=== PATIENT | female | born 1970 | race Caucasian/White ===

== ENCOUNTER 2018-01-15 10:19 | Observation (INO) ==
--- NOTE | 2018-01-15 10:52 | ED ---
HPI General Chief Complaint: Chest Pain Stated Complaint: Cardiac Time Seen by Provider: 01/15/18 10:40 Source: patient Mode of arrival: EMS Limitations: no limitations History of Present Illness HPI narrative: 37 years old female complains of chest pain. Patient states that the pain started an hour prior to arrival. Patient states that the pain is substernal chest pressure with radiation to the neck. Patient states that he has shortness of breath, nausea with the chest pain. Patient states that patient was pale. EMS was called. Patient was given nitroglycerin sublingually x2 with resolution of the chest pain after 5 minutes. Patient denies any chest pain now. Patient has history of irregular heartbeat and was seen by her hearing therapy teacher and referred to human resources advisor study. Patient has history of hypertension. Patient denies history of diabetes or hyperlipidemia. Patient stopped smoking 60 days ago. Patient has family history of heart disease. Patient denies any chest pain now. MD complaint: chest pain Complete Quality Measures for STEMI Alert Patients STEMI Alert: No Onset (ago): minute(s) Duration: constant Onset: during rest Pain location: substernal Severity: moderate Severity scale (1-10): 5 Quality: aching and heaviness Pain radiation: neck Relieving factors: nitroglycerin Exacerbating factors: nothing Associated symptoms: nausea Treatments prior to arrival chest pain: nitroglycerin Related Data Home Medications Medication Instructions Recorded Confirmed diltiazem HCl [DILT-XR] 120 mg PO DAILY 01/15/18 01/15/18 triamterene-hydrochlorothiazid 120 mg PO DAILY 01/15/18 01/15/18 Allergies Allergy/AdvReac Type Severity Reaction Status Date / Time No Known Allergies Allergy Verified 01/15/18 15:28 Review of Systems Except as stated in HPI: all other systems reviewed are negative [facility] Medical History Medical History Arrhythmia (Acute) Cervical vertebral fusion (Acute) Degenerative cervical disc (Acute) Hypertension (Acute) Meniere disease (Acute) Tubal ligation status (Acute) Surgical History Surgical History H/O arthroscopic knee surgery (Acute) Social History Social History Substance History: No History of Abuse Second Hand Smoke Exposure: No Smoking Status: Former smoker Tobacco Type: Cigarettes How Often Do You Have a Drink Containing Alcohol: Monthly or less Recent Travel in [facility] within the Last 8 Weeks: No Recent Out of Country Travel within the Last 8 Weeks: No Immunization History Tetanus Immunization: Unsure Hx Influenza Vaccine This Season: No Exam Narrative Exam Narrative: GENERAL: Well-nourished, well-developed patient. SKIN: Focused skin assessment warm/dry. HEAD: Normocephalic. EYES: No scleral icterus. No injection or drainage. NECK: Supple, trachea midline. No JVD or lymphadenopathy. CARDIOVASCULAR: Regular rate and rhythm without murmurs, gallops, or rubs. RESPIRATORY: Breath sounds equal bilaterally. No accessory muscle use. GASTROINTESTINAL: Abdomen soft, non-tender, nondistended. MUSCULOSKELETAL: No cyanosis, or edema. BACK: Nontender without obvious deformity. No CVA tenderness. Neurologic exam normal. Course Initial Documented Vital Signs Temperature 98.1 F 01/15/18 10:25 Pulse Rate 69 01/15/18 10:25 Respiratory Rate 18 01/15/18 10:25 Blood Pressure 115/75 01/15/18 10:25 Pulse Oximetry 99 01/15/18 10:25 Last Documented Vital Signs Temperature 98.1 F 01/16/18 12:00 Pulse Rate 64 01/16/18 12:00 Respiratory Rate 16 01/16/18 12:00 Blood Pressure 108/64 01/16/18 12:00 Pulse Oximetry 97 01/16/18 12:00 Medical Decision Making MDM Narrative Medical decision making narrative: 47 years old female with chest pain. History of irregular heartbeat. patient will be admitted to chest pain center. Differential Diagnosis Differential Diagnosis: Differential diagnosis including arrhythmia, angina, NH , PE, pneumothorax. Lab Data Result diagrams: 01/15/18 10:30 01/15/18 10:30 Lab Results 01/15/18 01/15/18 01/15/18 Range/Units 10:30 10:30 10:30 WBC 7.4 (4.0-11.0) th/mm3 RBC 4.26 (4.00-5.30) mil/mm3 Hgb 13.6 (11.6-15.3) gm/dL Hct 39.8 (35.0-46.0) % MCV 93.3 (80.0-100.0) fL MCH 31.8 (27.0-34.0) pg MCHC 34.1 (32.0-36.0) % RDW 14.0 (11.6-17.2) % Plt Count 264 (150-450) th/mm3 MPV 8.9 (7.0-11.0) fL Neut % (Auto) 60.0 (16.0-70.0) % Lymph % (Auto) 28.8 (9.0-44.0) % Towns % (Auto) 8.0 (0.0-8.0) % Eos % (Auto) 2.4 (0.0-4.0) % Baso % (Auto) 0.8 (0.0-2.0) % Neut # (Auto) 4.4 (1.8-7.7) th/mm3 Lymph # (Auto) 2.1 (1.0-4.8) th/mm3 [place] # (Auto) 0.6 (0.0-0.9) th/mm3 Eos # (Auto) 0.2 (0.0-0.4) th/mm3 Baso # (Auto) 0.1 (0.0-0.2) th/mm3 WBC Differential . Differential Comment Auto diff final PT 10.1 (9.8-11.6) sec INR 1.0 Ratio APTT 23.5 L (24.3-30.1) sec Sodium 138 (136-145) meq/L Potassium 3.6 (3.5-5.1) meq/L Chloride 101 (98-107) meq/L Carbon Dioxide 28.4 (21.0-32.0) meq/L Anion Gap 9 (5-15) meq/L BUN 9 (7-18) mg/dL Creatinine 0.98 (0.50-1.00) mg/dL Estimated GFR 61 L (>89) mL/min Random Glucose 98 (74-106) mg/dL Calcium 8.4 L (8.5-10.1) mg/dL Magnesium 1.9 (1.5-2.5) mg/dL Total Bilirubin 0.3 (0.2-1.0) mg/dL AST 36 (15-37) U/L ALT 31 (10-53) U/L Alkaline Phosphatase 47 (45-117) U/L Total Creatine Kinase 254 H (26-192) U/L CK-MB (CK-2) 3.3 (0.5-3.6) ng/mL CK-MB (CK-2) % 1.3 (0.0-4.0) % Troponin I Less than 0.02 L (0.02-0.05) ng/mL Total Protein 6.9 (6.4-8.2) g/dL Albumin 3.3 L (3.4-5.0) g/dL 01/15/18 01/15/18 Range/Units 16:30 20:50 WBC (4.0-11.0) th/mm3 RBC (4.00-5.30) mil/mm3 Hgb (11.6-15.3) gm/dL Hct (35.0-46.0) % MCV (80.0-100.0) fL MCH (27.0-34.0) pg MCHC (32.0-36.0) % RDW (11.6-17.2) % Plt Count (150-450) th/mm3 MPV (7.0-11.0) fL Neut % (Auto) (16.0-70.0) % Lymph % (Auto) (9.0-44.0) % Town[place] % (Auto) (0.0-8.0) % Eos % (Auto) (0.0-4.0) % Baso % (Auto) (0.0-2.0) % Neut # (Auto) (1.8-7.7) th/mm3 Lymph # (Auto) (1.0-4.8) th/mm3 [place] # (Auto) (0.0-0.9) th/mm3 Eos # (Auto) (0.0-0.4) th/mm3 Baso # (Auto) (0.0-0.2) th/mm3 WBC Differential Differential Comment PT (9.8-11.6) sec INR Ratio APTT (24.3-30.1) sec Sodium (136-145) meq/L Potassium (3.5-5.1) meq/L Chloride (98-107) meq/L Carbon Dioxide (21.0-32.0) meq/L Anion Gap (5-15) meq/L BUN (7-18) mg/dL Creatinine (0.50-1.00) mg/dL Estimated GFR (>89) mL/min Random Glucose (74-106) mg/dL Calcium (8.5-10.1) mg/dL Magnesium (1.5-2.5) mg/dL Total Bilirubin (0.2-1.0) mg/dL AST (15-37) U/L ALT (10-53) U/L Alkaline Phosphatase (45-117) U/L Total Creatine Kinase 206 H 181 (26-192) U/L CK-MB (CK-2) 2.9 (0.5-3.6) ng/mL CK-MB (CK-2) % 1.4 (0.0-4.0) % Troponin I Less than 0.02 L Less than 0.02 L (0.02-0.05) ng/mL Total Protein (6.4-8.2) g/dL Albumin (3.4-5.0) g/dL Imaging Data Radiologist's impression: ITS Impressions Chest X-Ray 01/15/18 10:40 CONCLUSION: No acute cardiopulmonary disease Myocardial Perfusion Scan Nuc Med 01/16/18 07:29 CONCLUSION: 1. No reversible perfusion defects ischemia. 2. Normal ejection fraction. Discharge Plan Discharge Disposition Patient Disposition: 01 Discharge Home Discharge Condition Condition: Stable Discharge Order Discharge Orders: Discharge Order (Routine); Ordered 01/16/18 Ordered By: Kem Dominguez Discharge Details Anticipated Discharge Date: 01/16/18 Discharge Problem: Chest pain Physicians Team ED Provider: Josh Lockhart Primary Care Provider: Primary Care Merly Echols Attending Provider: Edil Oden Status ED Status: Left Department Discharge Information Discharge Date/Time: 01/15/18 15:22
[2018-01-15 11:18] LABS: Baso # (Auto) 0.1 th/mm3 (0.0-0.2); Baso % (Auto) 0.8 % (0.0-2.0); Eos # (Auto) 0.2 th/mm3 (0.0-0.4); Eos % (Auto) 2.4 % (0.0-4.0); Hematocrit 39.8 % (35.0-46.0); Hemoglobin 13.6 gm/dL (11.6-15.3); Lymph # (Auto) 2.1 th/mm3 (1.0-4.8); Lymph % (Auto) 28.8 % (9.0-44.0); Mean Corpuscular HGB Conc 34.1 % (32.0-36.0); Mean Corpuscular Hemoglobin 31.8 pg (27.0-34.0); Mean Corpuscular Volume 93.3 fL (80.0-100.0); Mean Platelet Volume 8.9 fL (7.0-11.0); Mono # (Auto) 0.6 th/mm3 (0.0-0.9); Neut # (Auto) 4.4 th/mm3 (1.8-7.7); Platelet Count 264 th/mm3 (150-450); Red Blood Count 4.26 mil/mm3 (4.00-5.30); White Blood Count 7.4 th/mm3 (4.0-11.0)
--- NOTE | 2018-01-15 11:21 | XR ---
EXAM DATE: 01/15/2018 11:15 AM EDT AGE/SEX: 47 years / Female INDICATIONS: Chest Pain, Heart Palpitations CLINICAL DATA: This is the patient's initial encounter. Patient reports that signs and symptoms have been present for 1 day and indicates a pain score of 5/10. MEDICAL/SURGICAL HISTORY: None. None. COMPARISON: No prior exams available for comparison. FINDINGS: A single AP view of the chest demonstrates the lungs to be symmetrically aerated without evidence of mass, infiltrate or effusion. The cardiomediastinal contours are unremarkable. Osseous structures a re intact. CONCLUSION: No acute cardiopulmonary disease Electronically signed by: Félix De La Torre MD 01/15/2018 11:19 AM EDT
[2018-01-15 11:28] LABS: Activated Partial Thrombo Time 23.5 sec (24.3-30.1); Prothrombin Time 10.1 sec (9.8-11.6)
[2018-01-15 11:54] LABS: Alanine Aminotransferase 31 U/L (10-53); Albumin 3.3 g/dL (3.4-5.0); Alkaline Phosphatase 47 U/L (45-117); Anion Gap 9 meq/L (5-15); Aspartate Aminotransferase 36 U/L (15-37); Blood Urea Nitrogen 9 mg/dL (7-18); Calcium 8.4 mg/dL (8.5-10.1); Carbon Dioxide 28.4 meq/L (21.0-32.0); Chloride 101 meq/L (98-107); Creatine Kinase 254 U/L (26-192); Glomerular Filtration Rate 61 mL/min (>89); Glucose,Random 98 mg/dL (74-106); Magnesium 1.9 mg/dL (1.5-2.5); Potassium 3.6 meq/L (3.5-5.1); Sodium 138 meq/L (136-145); Total Protein 6.9 g/dL (6.4-8.2)
[2018-01-15 12:07] LABS: CKMB Percent 1.3 % (0.0-4.0); Creatine Kinase MB 3.3 ng/mL (0.5-3.6)
[2018-01-15] MEDS ORDERED: ALPRAZolam 0.25 MG Tablet PO PRN (15:16)
[2018-01-15] MEDS ORDERED: Acetaminophen 500 MG Tablet PO PRN (15:18)
--- NOTE | 2018-01-15 15:37 | ECG ---
Date Performed: 01/15/2018 Time Performed: 10:30:51 PTAGE: 47 years EKG: Sinus rhythm NORMAL ECG NO PREVIOUS TRACING DOCTOR: Joseph Yadav Interpretating Date/Time 01/15/2018 15:34:45
[2018-01-15] MEDS: dilTIAZem CD 120 MG Capsule PO SCH (16:01)
--- NOTE | 2018-01-15 16:03 | P.HPCA ---
History of Present Illness Primary Care Physician: No Primary Care Physician Chief Complaint: Chest pain and palpitations History of Present Illness: This is a 47-year-old female that presents to ED via EMS with complaint of palpitations and chest pain. Patient states she has been having issues with both for some time. She was seen by patient safety coordinator and had a Holter monitor within the last month. States she wore for couple weeks. She states that she was told that a fast arrhythmia was observed and she was referred to a line o scribe operator. The line o scribe operator has scheduled her for an EP study and of this month. This will occur in [facility] where she resides. Her and her [place] are here for the races. She states she has been having palpitations and chest discomfort a few times a day for last several weeks. Usually lasts a few minutes when it occurs. It is random. This morning the same occurred but it lasted longer. Lasted about 45 minutes. States she felt as if her heart was beating rapidly and she developed the same type of pressure in her throat that she normally does but again it lasted longer. The sensation of heart beating rapidly lasted about 20 minutes but the discomfort lasted 45 minutes. She also felt like she could have passed out but did not have a syncopal episode. She was placed on diltiazem couple weeks ago but stopped taking it 4 days ago thinking it was causing itching on her feet. The itching is still present at discontinuing the medication 4 days ago. States she has never had a heart catheterization and if she had a stress test that was years ago. Currently is asymptomatic. Denies history of hyperlipidemia diabetes and CAD. Has history of Mnire's disease and takes Dyazide for that. States that her father at the age of 66 old myocardial infarction but states that he had a bypass in his late 20s. Patient states she quit smoking about 2 months ago prior to that she smoked between 1/2-1 pack of cigarettes daily for 30 years. Patient has had tubal ligation and cervical fusion. - Diagnosis (1) Chest pain (2) Palpitations (3) Hypertension (4) Mnire's disease Inpatient Certification: I certify that the inpatient services were ordered in accordance with Medicare regulations governing the order. This includes certification that hospital inpatient services are reasonable and necessary and in the case of services not specified as inpatient-only under 42 CFR 419.22(n), that they are appropriately provided as inpatient services in accordance to with the 2-midnight benchmark under 43 CFR 412.3(e) Review of Systems General: Patient denies fevers, chills, and recent travel. HEENT: Patient denies headache, sore throat, difficulty swallowing. Cardiovascular: Has the chest discomfort as mentioned above. Denies sensation of heart beating rapidly or irregularly. No syncope. Denies diaphoresis. Respiratory: Denies shortness of breath or inspirational chest discomfort. Denies coughing wheezing or hemoptysis. GI: Patient denies nausea, vomiting, diarrhea, abdominal pain, bloody stools. Musculoskeletal: Patient denies joint pain or edema. Denies calf pain or edema. Neurovascular: Patient denies numbness, tingling, weakness in extremities. Denies headache. Endocrine: Denies polyuria and polydipsia. Hematologic: Denies easy bruising. Skin: Denies rash or itching. PMFSH - History History Provided By: Patient - Medical History Medical History: Medical History (Last Reviewed 01/15/18 @ 10:50 by Josh Lockhart MD) Arrhythmia Cervical vertebral fusion Degenerative cervical disc Hypertension Meniere disease Tubal ligation status - Surgical History Surgical History: Surgical History (Last Reviewed 01/15/18 @ 10:50 by Josh Lockhart MD) H/O arthroscopic knee surgery - Tobacco History Second Hand Smoke Exposure: No Tobacco Use In Past 30 Days: No Smoking Status: Former smoker Tobacco Type: Cigarettes - Alcohol History How Often Do You Have a Drink Containing Alcohol: Monthly or less - Substance Use History Substance History: No History of Abuse - Travel History Recent Travel in the [place] Within the Last 8 Weeks: No Recent Travel Out of the Country Within the Last 8 Weeks: No - Immunization History Tetanus Immunization: Unsure Hx Influenza Vaccine This Season: No Medications and Allergies Active Medications: Active Medications Acetaminophen (Tylenol) 500 mg PO Q6H PRN PRN Reason: pain scale 1-5 Hydrocodone Bitart/Acetaminophen ([place] 7.5/325) 1 tab PO Q6H PRN PRN Reason: pain scale 6-10 Albuterol (Duoneb Neb (Prn)) 1 ampul NEB Q4HR NEB PRN PRN Reason: SHORTNESS OF BREATH/WHEEZING Alprazolam (Xanax) 0.25 mg PO Q8H PRN PRN Reason: ANXIETY Aspirin (Aspirin) 325 mg PO DAILY ERIC Clonidine HCl (Catapres) 0.1 mg PO Q6H PRN PRN Reason: SBP >165 OR DBP > 110 Diltiazem HCl (Cardizem Cd 24hr) 120 mg PO DAILY [facility] Ondansetron HCl (Zofran Inj) 4 mg IV.PUSH Q6H PRN PRN Reason: NAUSEA Pantoprazole Sodium (Protonix) 40 mg PO DAILY [facility] Sodium Chloride (Ns Flush) 2 ml IV.FLUSH UNSCH PRN PRN Reason: FLUSH AFTER USING IV ACCESS Sodium Chloride (Ns Flush) 2 ml IV.FLUSH BID ERIC Sodium Chloride (Ns Flush) 2 ml IV.FLUSH PRN PRN PRN Reason: FLUSH AFTER USING IV ACCESS Triamterene/HCTZ (Dyazide 37.5/25 Mg) 1 cap PO DAILY [facility] Allergies Allergy/AdvReac Type Severity Reaction Status Date / Time No Known Allergies Allergy Verified 01/15/18 15:28 Home Medications Medication Instructions Recorded Confirmed Type diltiazem HCl [DILT-XR] 120 mg PO DAILY 01/15/18 01/15/18 History triamterene-hydrochlorothiazid 120 mg PO DAILY 01/15/18 01/15/18 History Exam Vital signs: Vital Signs 01/15/18 10:25 01/15/18 10:34 01/15/18 11:32 Temperature 98.1 F Pulse Rate 69 72 64 Respiratory Rate 18 12 14 Blood Pressure 115/75 128/73 128/73 Pulse Oximetry 99 99 97 01/15/18 15:01 01/15/18 15:50 01/15/18 15:52 Temperature Pulse Rate 65 62 Respiratory Rate 18 Blood Pressure 116/58 L 117/70 Pulse Oximetry 98 98 98 Intake & Output 01/14/18 01/15/18 01/15/18 18:59 06:59 18:59 Weight 72.575 kg Narrative: GENERAL: This is a well-nourished, well-developed patient, in no apparent distress. Patient speaks in clear complete sentences. Patient is pleasant. HEENT: Head is atraumatic and normocephalic. Neck is supple without lymphadenopathy and trachea is midline. No JVD or carotid bruits. CARDIOVASCULAR: Regular rate and rhythm without murmurs, gallops, or rubs. RESPIRATORY: Clear to auscultation. Breath sounds equal bilaterally. No wheezes , rales, or rhonchi. Chest wall is nontender. No use of accessory muscles. GASTROINTESTINAL: Abdomen is nontender, nondistended. Abdomen soft. No obvious pulsatile mass or bruit. No CVA tenderness. Strong femoral pulses bilaterally. Normal bowel sounds in all quadrants. MUSCULOSKELETAL: Patient is moving upper and lower extremities freely. No calf tenderness or edema, no Homans sign. Strong pulses in upper and lower extremities. NEUROLOGICAL: Patient is alert and oriented. Cranial nerves 2-12 are grossly intact. No focal deficits and speech is clear. SKIN: No rash and turgor is normal. Results 01/15/18 10:30 01/15/18 10:30 Cardiac Enzymes 01/15/18 Range/Units 10:30 AST 36 (15-37) U/L CK-MB (CK-2) 3.3 (0.5-3.6) ng/mL Troponin I Less than 0.02 L (0.02-0.05) ng/mL Coagulation 01/15/18 Range/Units 10:30 PT 10.1 (9.8-11.6) sec APTT 23.5 L (24.3-30.1) sec CBC 01/15/18 Range/Units 10:30 WBC 7.4 (4.0-11.0) th/mm3 RBC 4.26 (4.00-5.30) mil/mm3 Hgb 13.6 (11.6-15.3) gm/dL Hct 39.8 (35.0-46.0) % Plt Count 264 (150-450) th/mm3 Neut # (Auto) 4.4 (1.8-7.7) th/mm3 Lymph # (Auto) 2.1 (1.0-4.8) th/mm3 [place] # (Auto) 0.6 (0.0-0.9) th/mm3 Eos # (Auto) 0.2 (0.0-0.4) th/mm3 Baso # (Auto) 0.1 (0.0-0.2) th/mm3 Comprehensive Metabolic Panel 01/15/18 Range/Units 10:30 Sodium 138 (136-145) meq/L Potassium 3.6 (3.5-5.1) meq/L Chloride 101 (98-107) meq/L Carbon Dioxide 28.4 (21.0-32.0) meq/L BUN 9 (7-18) mg/dL Creatinine 0.98 (0.50-1.00) mg/dL Calcium 8.4 L (8.5-10.1) mg/dL AST 36 (15-37) U/L ALT 31 (10-53) U/L Alkaline Phosphatase 47 (45-117) U/L Total Protein 6.9 (6.4-8.2) g/dL Albumin 3.3 L (3.4-5.0) g/dL Intake and Output 01/15/18 01/15/18 01/15/18 06:59 14:59 22:59 Other: Weight 72.575 kg Patient Weight 01/16/18 06:59 Weight 72.575 kg EKG interpretations - EKG EKG shows: sinus rhythm (Initial EKG is sinus rhythm without significant ST segment depressions or elevations.) Caprini VTE Risk Assessment Caprini VTE Risk Assessment: No/Low Risk (score <= 1) Caprini Risk Assessment Model: Point Value = 1 Point Value = 2 Point Value = 3 Point Value = 5 Age 41-60 Minor surgery BMI > 25 kg/m2 Swollen legs Varicose veins or History of unexplained or recurrent spontaneous Oral contraceptives or hormone replacement Sepsis (< 1 month) Serious lung disease, including pneumonia (< 1 month) Abnormal pulmonary function Acute myocardial infarction Congestive heart failure (< 1 month) History of inflammatory bowel disease Medical patient at bed rest Age 61-74 Arthroscopic surgery Major open surgery (> 45 min) Laparoscopic surgery (> 45 min) Malignancy Confined to bed (> 72 hours) Immobilizing plaster cast Central venous access Age >= 75 History of VTE Family history of VTE Factor V Leiden Prothrombin [id number] Lupus anticoagulant Anticardiolipin antibodies Elevated serum homocysteine Heparin-induced thrombocytopenia Other congenital or acquired thrombophilia Stroke (< 1 month) Elective arthroplasty Hip, pelvis, or leg fracture Acute spinal cord injury (< 1 month) Prophylaxis Regimen: Total Risk Factor Score Risk Level Prophylaxis Regimen 0-1 Low Early ambulation 2 Moderate Order ONE of the following: *Sequential Compression Device (SCD) *Heparin 5000 units SQ BID 3-4 Higher Order ONE of the following medications: *Heparin 5000 units SQ TID *Enoxaparin/Lovenox 40 mg SQ daily (WT < 150 kg, CrCl > 30 mL/min) *Enoxaparin/Lovenox 30 mg SQ daily (WT < 150 kg, CrCl > 10-29 mL/min) *Enoxaparin/Lovenox 30 mg SQ BID (WT < 150 kg, CrCl > 30 mL/min) AND/OR *Sequential Compression Device (SCD) 5 or more Highest Order ONE of the following medications: *Heparin 5000 units SQ TID (Preferred with Epidurals) *Enoxaparin/Lovenox 40 mg SQ daily (WT < 150 kg, CrCl > 30 mL/min) *Enoxaparin/Lovenox 30 mg SQ daily (WT < 150 kg, CrCl > 10-29 mL/min) *Enoxaparin/Lovenox 30 mg SQ BID (WT < 150 kg, CrCl > 30 mL/min) AND *Sequential Compression Device (SCD) Assessment and Plan - Assessment (1) Chest pain Code(s): R07.9 - Chest pain, unspecified Status: Acute (2) Palpitations Code(s): R00.2 - Palpitations Status: Acute (3) Hypertension Code(s): I10 - Essential (primary) hypertension Status: Acute (4) Mnire's disease Code(s): H81.09 - Meniere's disease, unspecified ear Status: Acute - Plan * Chest pain: Patient will continue to have serial cardiac enzymes and EKGs for ruling out purposes. She will be seen by Dr. Oden of cardiology in the chest pain center. If the patient rules out overnight, she will have a Lexiscan in the morning. Patient will be discharged home if her stress test is nonischemic with instructions to follow-up with her line o scribe operator, patient safety coordinator, and PCP. Return to ED for interval issues. * Hypertension: Continue medication. * Palpitations: Continue treatment as advised by her line o scribe operator. Follow back with her line o scribe operator within the next week. * Mnire's disease: Continue medication. Patient is stable at this time. She is agreeable to this plan. H&P: Quality - VTE Deep Vein Thrombosis/Pulmonary Embolism Present on Admission: Yes (1) Chest pain Qualifiers: Chest pain type: unspecified Qualified Code(s): R07.9 - Chest pain, unspecified
[2018-01-15 18:31] LABS: Creatine Kinase 206 U/L (26-192)
[2018-01-15 18:43] LABS: CKMB Percent 1.4 % (0.0-4.0); Creatine Kinase MB 2.9 ng/mL (0.5-3.6)
[2018-01-15 22:00] LABS: Creatine Kinase 181 U/L (26-192)
[2018-01-16] MEDS: dilTIAZem CD 120 MG Capsule PO SCH (08:19)
--- NOTE | 2018-01-16 08:33 | P.PNCA ---
Subjective Interval history: 37-year-old lady who is [place] the races. She has a preceding history of episodes of irregular fast heart rate already evaluated by cardiology in her area. She is scheduled for an EP study this coming week. However she has had no evaluation for underlying ischemic heart disease. Today she developed a fast irregular heart rate which was sustained and became associated with a deep midsternal chest discomfort that was associated with some radiation to the neck shortness of breath and nausea. The patient was discussed with the physician marketing reporting analyst additional radiographic and laboratory data was reviewed and the plan was agreed upon. The patient will be ruled out for ACS using standard chest pain center protocol and if ruled out will be further evaluated with a Lexiscan. Physical Exam Vital signs: Vital Signs 01/15/18 10:25 01/15/18 10:34 01/15/18 11:32 Temperature 98.1 F Pulse Rate 69 72 64 Respiratory Rate 18 12 14 Blood Pressure 115/75 128/73 128/73 Pulse Oximetry 99 99 97 01/15/18 15:01 01/15/18 15:50 01/15/18 15:52 Temperature Pulse Rate 65 62 Respiratory Rate 18 Blood Pressure 116/58 L 117/70 Pulse Oximetry 98 98 98 01/15/18 18:54 01/15/18 20:00 01/15/18 20:45 Temperature 97.6 F Pulse Rate 67 89 70 Respiratory Rate 16 Blood Pressure 125/72 Pulse Oximetry 99 01/16/18 00:00 01/16/18 00:45 01/16/18 04:00 Temperature 97.6 F 97.5 F L Pulse Rate 87 57 L 84 Respiratory Rate 16 16 Blood Pressure 115/70 110/69 Pulse Oximetry 99 98 01/16/18 04:39 01/16/18 08:00 Temperature 97.7 F Pulse Rate 57 L 63 Respiratory Rate 16 Blood Pressure 165/55 H Pulse Oximetry 98 Intake & Output 01/15/18 01/16/18 01/16/18 18:59 06:59 18:59 Weight 72.575 kg Other: Date of Last Bowel Movement 01/15/18 Narrative: Well-nourished well-developed lady in no acute distress at the time of this exam Neck no JVD masses nodes or bruits Chest clear to auscultation with no rales wheezes or rhonchi Cardiovascular regular sinus rhythm with no gallops rubs or murmurs Assessment and Plan - Assessment (1) Chest pain Code(s): R07.9 - Chest pain, unspecified Status: Acute Plan: Patient will be ruled out for ACS using standard chest pain center protocol. Once ruled out she will be evaluated with a nuclear stress test for more definitive assessment of possible underlying ischemia. If this is unremarkable she will be discharged with return [place] entry [place]. (2) Palpitations Code(s): R00.2 - Palpitations Status: Acute (3) Hypertension Code(s): I10 - Essential (primary) hypertension Status: Chronic (4) Mnire's disease Code(s): H81.09 - Meniere's disease, unspecified ear Status: Chronic - Plan * Chest pain: Patient will continue to have serial cardiac enzymes and EKGs for ruling out purposes. She will be seen by Dr. Oden of cardiology in the chest pain center. If the patient rules out overnight, she will have a Lexiscan in the morning. Patient will be discharged home if her stress test is nonischemic with instructions to follow-up with her quality assurance monitor, entry processor, and PCP. Return to ED for interval issues. * Hypertension: Continue medication. * Palpitations: Continue treatment as advised by her quality assurance monitor. Follow back with her quality assurance monitor within the next week. * Mnire's disease: Continue medication. Patient is stable at this time. She is agreeable to this plan. (1) Chest pain Qualifiers: Chest pain type: unspecified Qualified Code(s): R07.9 - Chest pain, unspecified
[2018-01-16] MEDS ORDERED: Aspirin 325 MG Tablet PO SCH (09:00)
[2018-01-16] MEDS ORDERED: Regadenoson Inj 0.4 MG/5 ML Syringe IV.PUSH ONE (10:08)
--- NOTE | 2018-01-16 11:59 | NM ---
EXAM DATE: 01/16/2018 11:50 AM EDT AGE/SEX: 47 years / Female INDICATIONS:Angina. . Chest pain. CLINICAL DATA: This is the patient's initial encounter. Patient reports that signs and symptoms have been present for 1 day and indicates a pain score of 0/10. MEDICAL/SURGICAL HISTORY: Hypertension. Total knee replacement, right. Tubal ligation. COMPARISON: No prior exams available for comparison. DOSE: 8.5 mCi Tc 99m Myoview at rest 27.3 mCi [id number] at stress 0.4 mg Lexiscan STRESS SYMPTOMS: Heart racing. EJECTION FRACTION: >70 % TECHNIQUE: The patient underwent pharmacologic stress with infusion of prescribed dose. Continuous ECG tracing was monitored during stress. Gated SPECT imaging was performed after stress and conventi onal SPECT imaging was performed at rest. The examination was performed on a SPECT/CT scanner, both attenuation and non-corrected datasets were reviewed. FINDINGS: Distribution: The maximum perfused segment at stress is in the anterolateral wall. Perfusion Study: The pattern of perfusion at stress is within normal limits. Gated Study: There are intact wall motion and wall thickening without hypokinetic or dyskinetic segm ents. The ejection fraction is calculated at >70%. RISK CATEGORY: Low (<1% Annual Motality Rate) CONCLUSION: 1. No reversible perfusion defects ischemia. 2. Normal ejection fraction. Electronically signed by: Félix De La Torre MD 01/16/2018 11:57 AM EDT
--- NOTE | 2018-01-16 14:53 | ECG ---
Date Performed: 01/15/2018 Time Performed: 16:59:43 PTAGE: 47 years EKG: Sinus rhythm NORMAL ECG NO SIG CHANGE PREVIOUS TRACING : 01/15/2018 10.30 DOCTOR: Edil Oden Interpretating Date/Time 01/16/2018 14:53:21
--- NOTE | 2018-01-16 14:53 | ECG ---
Date Performed: 01/15/2018 Time Performed: 21:27:51 PTAGE: 47 years EKG: Sinus rhythm NORMAL ECG PREVIOUS TRACING : 01/15/2018 16.59 DOCTOR: Edil Oden Interpretating Date/Time 01/16/2018 14:51:48
--- NOTE | 2018-05-24 08:41 | TR ---
Date Performed: 01/16/2018 Time Performed: 10:18:42 DOCTOR: Edil Oden DRUG LIST: CLINICAL HISTORY: REASON FOR TEST: REASON FOR ENDING: OBSERVATION: CONCLUSION: Lexiscan stress test was performed under standard four minute protocol. Radionuclide was injected one minute prior to ending the test. Non specific ST-T changes were noted but No elect rocardiographic abormalities were present diagnostic of ischemia. Nuclear imaging and interpretation are pending. COMMENTS:
== END 2018-01-16 14:05 | disposition home or self-care (01) ==
LOC: NEPFCDU 10:19 → NEPE 10:19 → NEDA 10:19 → NEPFCDU 15:18
PROVIDERS: ADMIT Internal Medicine Interventional Cardiology; ATTEND Internal Medicine Interventional Cardiology